=== PATIENT | male | born 1975 | race Asian ===

== ENCOUNTER 2017-04-05 08:51 | Day surgery (SDC) | payer OTHER ==
[~2017-04-05] VITALS: Ht 170.2 cm; Wt 72.3 kg
[2017-04-05] VITALS (8 sets, daily range): BP systolic 106–142; BP diastolic 69–94; PULSE 69–89; RESP 12–16; O2SAT 93–100
[~2017-04-05 08:51] MED LIST: CeFAZolin 2 Gm/50 mL D5W IV Premix IV ONE; FLUT9.9S NS; IBUP-1827 PO; Lactated Ringer's 1,000 ML IV SCH; SULF1TAB7 PO
[2017-04-05] MEDS ORDERED: fentaNYL-PF 50 mCg/mL 2 mL Inj ONE (08:52)
[2017-04-05] MEDS ORDERED: Ondansetron 2 mg/mL 2 mL Inj ONE (08:52)
[2017-04-05] MEDS ORDERED: Dexamethasone 4 mg/mL Inj ONE (08:52)
[2017-04-05] MEDS ORDERED: Propofol 10,000 mCg/mL 20 mL Inj ONE (08:52)
--- NOTE | 2017-04-05 08:56 | PCM.HPANE ---
Patient Data Date of Service: Apr 05, 2017 Surgeon Admitting Provider: Attending Provider:Tamara Orourke MD Primary Care Physician:Chirag Coyle MD Other Provider:Dany Parson Anesthesia Reason for Visit Scrotal Swelling Ht/WT & BMI Height (Feet): 5 Height (Inches): 6 Weight (Kilograms): 71.30 Body Mass Index 25.00 Allergies Coded Allergies: No Known Allergies (Unverified , 04/04/17) Past Anesthesia History Anesthesia History: Denies:: Anesthesia Reactions, Malignant Hyperthermia Diabetes History Hx Diabetes?: No MRSA MRSA: No Medications Hypertension Medication: No Reported Medications Sulfamethoxazole/Trimeth 800-160 mg (Bactrim DS)1 Each Tablet1 Tablet PO BID Ref 0 TO START POSTOP 04/04/17 Ibuprofen 600 Mg [id number] Mg PO TID PRN For Pain Ref 0 04/04/17 Fluticasone Propionate (Flonase Allergy Relief)50 Mcg/Actuation [place].susp9.9 Ml NS DAILY PRN prn 04/04/17 History History of ENT Problems?: No HEENT History: Denies:: Abnormal Airway Cataracts Difficult Intubation Dysphagia Glaucoma Hearing Problem Sinus Problem TMJ Denture Type: None Teeth Condition: Within Normal Limits Hx of Heart Problems?: Yes Cardiovascular History: Positive for:: Hypertension Denies:: Heart Murmur Hx of Respiratory Problem?: No Respiratory History: Denies:: Use of C-PAP Machine Hx Neurologic Problems?: No Hx of GI Problems?: Yes Other GI Pertinent History: S/P APPY C/OF IBS Hx of Problems?: Yes Other Pertinent History: HX ED C/OF NOCTURIA & URINARY DRIBBLING Male Hx: Positive for:: Scrotal Mass (LT HYDROCELE/LT SPERMATOCELE=CURRENT PROBLEM) Testicular Surgery (S/P VASECTOMY) Denies:: Prostate Problems Skin History: Denies:: History Skin Disorders? Pressure Ulcers Hx Musculoskeletal Problems?: Yes Musculoskeletal History: Positive for:: Osteoarthritis Psycho Social History: Positive for:: Anxiety (OCD) Hx Surgeries?: Yes (APPY,VASECTOMY,RT CTR) Hx Any Other Health Problems?: Yes Other History: Denies:: Cancer Endocrine Disease (C/OF NIGHT SWEATS) Hospitalization Thyroid Disease History Blood Transfusions: Denies:: Blood Transfusions Hx Diabetes: No Hx Alcohol Use: Yes (OCCAS)Hx Substance Use: Yes (MARIJUANA)Have You Smoked inLast 12 mo: No Stop/Bang Treated for Sleep Apnea?: No Do You Have a CPAP Machine?: No S-Snoring: Do You Snore Loudly: Yes T-Tired: feel tired, fatigued: No P-Blood Pressure: treated: Yes B- Body Mass Index > 35 kg/m2: No A- Age over 50: No N- Neck Large Circumference: No G- Gender Male: Yes IRWIN Risk Assessment: Low Risk, <3 Yes Risk Assessment Category Category 1A: Patient has history of documented sleep apnea, and HAS NOT received any narcotic, sedative or anesthesia administration during this stay. Category 1B: Patient has history of documented sleep apnea, and HAS received any narcotic , sedative or anesthesia administration during this stay Category 2: Patient has SUSPECTED Obstructive Sleep Apnea, and HAS received any narcotic , sedative or anesthesia administration during this stay. Category 3: Patient has SUSPECTED Obstructive Sleep Apnea and HAS NOT received narcotic, sedative or anesthesia administration during this stay. Category 4: Outpatient in Procedural Areas with known sleep apnea or who screen positive for High Risk via the STOP/BANG questionnaire. Exam Exam General Appearance: Alert, Oriented X3, Cooperative, Mild Distress HEENT/AIRWAY: MP 2 Lungs: Clear to Auscultation, Clear to Percussion Heart: Exam Unremarkable, Regular Rate/Rhythm Plan Impression Patient chart reviewed, patient interviewed and anesthestic plan with risks, benefits, and alternatives discussed, and informed consent obtained. ASA Physical Status: ASA2 Mod Systemic Disease Anesthetic Plan: GA Bene/Risks/Altern/Consents: Yes HP Complete Prior to Induction: Yes Farzad Olson MD Apr 05, 2017 08:56
[2017-04-05] MEDS: Lactated Ringer's 1,000 ML IV SCH ×2 (09:25→12:08)
[2017-04-05] MEDS ORDERED: CeFAZolin 2 Gm/50 mL D5W Duplex Bag IV ONE (11:07)
[2017-04-05] MEDS ORDERED: Bupivacaine-MPF 0.5% 30 mL Inj INFILTRATE ONE (12:20)
[2017-04-05] MEDS ORDERED: EPHEDrine Sulfate 50 mg/mL Inj IVPUSH PRN (12:30)
[2017-04-05] MEDS ORDERED: Lactated Ringer's 500 ML IV PRN (12:30)
[2017-04-05] MEDS ORDERED: fentaNYL-PF 50 mCg/mL 2 mL Inj IVPUSH PRN (12:30)
[2017-04-05] MEDS ORDERED: HYDROmorphone 1 mg/mL Inj IVPUSH PRN (12:30)
[2017-04-05] MEDS ORDERED: Dexamethasone 4 mg/mL Inj IVPUSH PRN (12:30)
[2017-04-05] MEDS ORDERED: Ondansetron 2 mg/mL 2 mL Inj IVPUSH PRN (12:30)
[2017-04-05] MEDS ORDERED: Lactated Ringer's 1,000 ML IV SCH (12:30)
[2017-04-05] MEDS ORDERED: HYDROcodone-APAP 5-325 mg Tablet PO PRN (13:35)
[2017-04-05] MEDS ORDERED: Ondansetron 8 mg ODT Tablet PO PRN (13:35)
--- NOTE | 2017-04-05 13:59 | PCM.ANEP1 ---
Post Anesthesia PACU Phase 1 Assessment Vital Signs Vital Signs Date Time Temp Pulse Resp B/P Pulse Ox O2 Delivery O2 Flow Rate FiO2 04/05/17 13:50 88 12 142/86 100 Room Air 04/05/17 13:40 89 15 124/78 99 Room Air 04/05/17 13:35 69 16 109/69 99 Room Air 04/05/17 13:31 37.1 72 16 106/69 93 Room Air 04/05/17 09:23 36.2 78 16 135/87 100 Room Air Anesthetic Administered: GA Level of Alertness: Awake, talking MARY's with Equal Strength: Yes Pain: No Nausea or Vomiting: No CV Function & Hydration Stable: Yes Airway Device: Oxygen Delivery: Room Air Lungs: Clear to Auscultation, Clear to Percussion Dermatome Level: Full Sensation PACU Phase 2 Assessment Complications: No Follow up Care: N/A Patient Instructions Provided: N/A Farzad Olson MD Apr 05, 2017 13:59
--- NOTE | 2017-04-08 09:00 | OP ---
[address] [address] OPERATIVE REPORT PATIENT: KAY COOPER : 1975 MR#: [id number] ADMIT: 04/05/2017 JOB ID: [id number] DATE OF SURGERY: 04/05/2017 PROCEDURE: Left hydrocelectomy. SURGEON: Tamara Orourke MD ANESTHESIA: General. PREOPERATIVE DIAGNOSIS(ES): Left hydrocele, tense, bothersome. POSTOPERATIVE DIAGNOSIS(ES): Left hydrocele, tense, bothersome. INDICATIONS: The patient is a 41-year-old gentleman with the above-mentioned hydrocele, quite bothersome to him. Also notable diagnosis of obsessive-compulsive disorder and anxiety. Electing to proceed with elective hydrocelectomy. The patient is counseled extensively about risks and benefits of the aforementioned procedure. Also this was nonurgent and not necessary unless it bothered him enough to be worthwhile going through the procedure. PROCEDURE IN DETAIL: After appropriate informed consent was obtained, the patient was brought to the operating room. Adequate general anesthesia was induced. He was made comfortable in the supine position. All pressure points carefully padded. Cleaned, prepped, and draped in the usual sterile fashion. An incision was made overlying the median raphe. The left-sided hydrocele was tense and full. This was dissected out sharply and bluntly to deliver the hydrocele outside of the scrotum. We then incised it. Output measured was 380 cc of straw-colored fluid. The thin-walled sac itself was then excised. The edges were cauterized extensively as they were quite vascular, and then oversewn with 3-0 chromic locking sutures. Hemostasis was good. The wound itself was irrigated out copiously with antibiotic solution. The testis was replaced in appropriate position back into the scrotum itself. Was irrigated out further. We then closed the dartos with running 2-0 Vicryl suture and then the skin itself with another layer of Vicryl subcu and then 2-0 chromic running. Hemostasis was good. The patient tolerated the procedure very well. Sterile dressing was applied. He was awakened, taken in stable condition to the postanesthesia care unit.
== END 2017-04-05 23:59 | disposition home or self-care (01) ==
LOC: SAS 08:51
PROVIDERS: ATTEND Urology
DX: N43.3 Hydrocele, unspecified (principal); F12.90 Cannabis use, unspecified, uncomplicated; I10 Essential (primary) hypertension; F42.9 Obsessive-compulsive disorder, unspecified; F32.9 Major depressive disorder, single episode, unspecified; Z87.891 Personal history of nicotine dependence
CPT/HCPCS: 55040; J0690; J1100; J1885; J2250; J2405; J3010; J7120